=== PATIENT | male | born 1960 | race Caucasian/White ===

== ENCOUNTER → 2023-11-03 | Day surgery (SDC) | payer BC, MEDICARE ==
[2023-10-28 10:30] VITALS: BMI 29.5
[~2023-11-03] MED LIST: ALPRAZolam 0.25 MG TAB PO PRN; ALPRAZolam 0.5 MG TAB PO PRN; ASPIRIN 325 MG TAB PO STA; HEPARIN SODIUM 1,000 UN/ML (10ML VL) IVP ONE; HEPARIN SODIUM 1,000 UN/ML (10ML VL) ONE; IOPAMIDOL-370 100ML BTL IVP ONE; LIDOCAINE 1% INJ 10MG/ML (20 ML MDV) ONE; LIDOCAINE 1% INJ 10MG/ML (20 ML MDV) SQ ONE; MIDAZOLAM 2 MG/2 ML VIAL IVP ONE; NITROGLYCERIN 1000MCG/10ML SYRINGE INTRACORON ONE; NITROGLYCERIN SL TABS 0.4 MG TAB SUBLINGUAL PRN; SODIUM CHLORIDE 0.9% 1,000 ML in EMPTY BAG 1 BAG IV SCH; SODIUM CHLORIDE 0.9% 500 ML 500 ML IV ONE; VERAPAMIL 2.5 MG/ML 2 ML AMP ONE; VERAPAMIL SYRINGE (5 MG/10 ML) INTRAARTER ONE; amLODIPine 5 MG TAB ONE; fentaNYL (PF) 50 MCG/ML 2 ML AMP IVP ONE; fentaNYL (PF) 50 MCG/ML 2 ML AMP ONE
[2023-11-03 12:17] LABS: Basophils # (A) 0.1 k/uL (0-0.2); Basophils % (A) 1 %; Eosinophils # (A) 0.3 k/uL (0-0.7); Eosinophils % (A) 3 %; HCT 45.8 % (39.0-53.0); HGB 15.6 gm/dL (13.0-17.5); Lymphocytes # (A) 2.3 k/uL (1.0-4.8); Lymphocytes % (A) 22 %; MCH 29.5 pg (25.0-35.0); MCHC 34.1 g/dL (31.0-37.0); MCV 86.6 fL (80.0-100.0); Mean Platelet Volume 7.5; Monocytes # (A) 0.5 k/uL (0-1.0); Monocytes % (A) 4 %; Neutrophils # (A) 7.3 k/uL (1.3-7.7); Neutrophils % (A) 68 %; Platelet Count 276 k/uL (150-450); RBC 5.29 m/uL (4.30-5.90); RDW 13.2 % (11.5-15.5); WBC 10.8 k/uL (3.8-10.6)
[2023-11-03 12:31] LABS: African American GFR (CKD) >90 (>60 ml/min/1.73 sqM); Anion Gap 7 mmol/L; Blood Urea Nitrogen 20 mg/dL (9-20); Calcium 9.2 mg/dL (8.4-10.2); Carbon Dioxide 24 mmol/L (22-30); Chloride 107 mmol/L (98-107); Glucose 89 mg/dL (74-99); Non-African American GFR(CKD) >90 (>60 ml/min/1.73 sqM); Potassium 4.1 mmol/L (3.5-5.1); Sodium 138 mmol/L (137-145)
[2023-11-03 12:35] VITALS: RESP 16; TEMP 97.4
[2023-11-03 15:10] VITALS: BP 153/94; PULSE 54
--- NOTE | 2023-11-03 23:58 | CC ---
CARDIAC CATHETERIZATION REPORT Moderate conscious sedation time was 20 minutes. The patient was administered Versed. Oxygen saturation, hemodynamics and EKG were monitored closely. PROCEDURE: IFR assessment of 1st obtuse marginal branch of circumflex. PERFORMED BY: Dr. Mckayla Johnson. CLINICAL INFORMATION: The patient is a 63-year-old gentleman with paroxysmal atrial fibrillation, hypertension, hyperlipidemia, frequent PVCs and noncritical CAD. On October 06, 2023, I performed a cardiac cath on this gentleman and noted that he had a right-dominant system. No significant disease in the RCA, left main or LAD, but the 1st obtuse marginal which was a smaller vessel had a 55-60%eccentric narrowing. He also had 14% PVCs. I advised in an IFR assessment and brought in for the procedure electively. The patient and understood all details and wished to proceed with the procedure. PROCEDURE NOTE: Under local anesthesia and strict aseptic precautions, a 6-K[place] introducer was placed in the right radial artery. Using a JL3.5 guide catheter, I cannulated the left coronary artery. The patient was given 6000 units of intravenous heparin. I used an IFR wire and appropriate normalization was performed in the ascending aorta. The wire was then advanced under fluoroscopic guidance into the 1st obtuse marginal and well beyond. IFR assessment was performed after moving the catheter proximally into the aorta and also giving some nitroglycerin. IFR assessment suggested 0.92 on 3 separate values. Therefore this was not significant. We will not perform any PCI. The catheter and sheath were taken out and TR band applied as per protocol with saturation of fingers of the right hand of about 97%. The lesion in the 1st obtuse marginal is not physiologically significant. Therefore, we will pursue medical therapy with risk factor modification. The patient will be discharged later on today. MMODL / IJN: [id number] /
== END ==
LOC: CATHCVL 11:43
PROVIDERS: ATTEND Internal Medicine Interventional Cardiology
DX: I25.10 Atherosclerotic heart disease of native coronary artery without angina pectoris (principal); I48.0 Paroxysmal atrial fibrillation; I10 Essential (primary) hypertension; E78.5 Hyperlipidemia, unspecified; I49.3 Ventricular premature depolarization; F17.210 Nicotine dependence, cigarettes, uncomplicated; Z79.01 Long term (current) use of anticoagulants; Z79.899 Other long term (current) drug therapy
CPT/HCPCS: 93454; 93799; 80048; 85025; C1887; C1769 ×2; C1894; J2250; J2001; J3010; J1644; Q9967; J2305